=== PATIENT | male | born 1975 | race Caucasian/White ===

== ENCOUNTER 2019-11-25 08:28 | Outpatient (CLI) | payer OTHER ==
--- NOTE | 2019-11-25 08:47 | RAD ---
LUMBAR SPINE RADIOGRAPHS 3 VIEWS: DATE: 11/25/2019. PROVIDED CLINICAL HISTORY: Low back pain. FINDINGS: Five [id number] lumbar-type vertebral bodies are present. Lumbar alignment appears normal. Mika tebral body heights appear preserved. Annular osteophyte formation is demonstrated. Lower lumbar sp ine facet arthritis. Pedicles appear intact. Sacroiliac joints appear symmetric. IMPRESSION: Lumbar disk and facet degenerative change. POS: SITA
== END 2019-11-25 08:29 | disposition home or self-care (01) ==
LOC: RAD-FRANK 08:28
PROVIDERS: ATTEND Nurse Practitioner Family
DX: M54.5 Low back pain (principal); M47.816 Spondylosis without myelopathy or radiculopathy, lumbar region; M51.36 Other intervertebral disc degeneration, lumbar region
CPT/HCPCS: 72100